=== PATIENT | female | born 1995 | race Caucasian/White ===

== ENCOUNTER 2017-07-18 19:47 | Emergency (ER) | payer MEDICAID, OTHER ==
[2017-07-18] MEDS ORDERED: NS 0.9% 1000 ML* 2,000 ML IV ONE (20:07)
[2017-07-18] MEDS ORDERED: Metoclopramide IV* 5 MG/ML 2 ML VIAL IV SLOW PU ONE ×2 (20:08→21:00)
[2017-07-18 20:48] LABS: ABS Basophils 0.1 10^3/ul (0-0.2); ABS Eosinophils 0.1 10^3/ul (0-0.6); ABS Lymphocytes 2.6 10^3/ul (1.0-4.8); ABS Monocytes 0.7 10^3/ul (0-0.8); ABS Nucleated RBC 0 10^3/ul; Eosinophil % 0.9 % (0-6); Hematocrit 40 % (35-47); Hemoglobin 13.4 g/dl (12.0-16.0); Lymphocyte % 20.8 % (25-47); Mean Corpuscular HGB Conc 34 g/dl (31-36); Mean Corpuscular Hemoglobin 30 pg (27-31); Mean Corpuscular Volume 88 fL (80-97); Mean Platelet Volume 8 um3 (7.4-10.4); Nucleated Red Blood Cells % 0; Platelet Count 293 10^3/ul (150-450); Red Cell Distribution Width 13 % (10.5-15); White Blood Count 12.6 10^3/ul (3.5-10.8)
--- NOTE | 2017-07-18 20:59 | RAD ---
INDICATION: Early with bleeding COMPARISON: None TECHNIQUE: Transabdominal scans were obtained for evaluation FINDINGS: There is a single intrauterine gestation variable presentation. The placenta is right lateral in location. There is cardiac activity of 158 beats for minute. There is documented movement. The neck fluid index appears normal. The cervix is closed measuring 4.1 cm. The estimated gestational age based on biparietal diameter, head circumference, abdominal circumference, and femur length corresponds to 14 weeks 4 days, 14 weeks 5 days, 13 weeks 5 days, and 13 weeks 5 days resulting a composite value of 14 weeks 0 days. This is a limited examination. A anatomic survey was not requested or performed. The anatomic survey can be performed at closer to 16-18 weeks as indicated. The right ovary measures 2.4 x 1.6 x 1.6 cm and contains a 1.6 cm cyst, likely corpus luteal cyst. Left ovary is not identified. IMPRESSION: INTRAUTERINE GESTATION AT 14 WEEKS 0 DAYS. NO SONOGRAPHIC ABNORMALITIES ARE DETECTED
--- NOTE | 2017-07-18 22:02 | ED ---
Ita Araujo Gabriel, scribed for Eric Calderon MD on 07/18/17 at 2008 . - HPI Summary HPI Summary: This patient is a 21 year old F BIBA to [facility] accompanied by her boyfriend with a chief complaint of hyperemesis since 07/11/17. Patient states she feels dehydrated and not getting adequate oral intake due to nausea. Patient denies diarrhea, fever, chills, vaginal bleeding, and vaginal discharge. She is currently 13 week and urinated last at 1800. . - History of Current Complaint Chief Complaint: EDOBProblems Stated Complaint: 13 WKS PREG/DEHYDRATED Time Seen by Provider: 07/18/17 20:03 Hx Obtained From: Patient Chief Complaint: Other: - vomiting Onset/Duration: Started Weeks Ago - 1, Still Present Timing: Constant Severity: Mild Current Severity: Mild Pain Intensity: 0 Associated Signs and Symptoms: Positive: Nausea, Vomiting - Allergies/Home Medications Allergies/Adverse Reactions: Allergies Allergy/AdvReac Type Severity Reaction Status Date / Time Hydrocodone Allergy Rash Verified 07/18/17 19:53 Morphine Allergy Rash Verified 07/18/17 19:53 Tramadol Allergy Rash Verified 07/18/17 19:53 PMH/Surg Hx/FS Hx/Imm Hx - Immunization History Immunizations Up to Date: Yes Infectious Disease History: No Infectious Disease History: Denies: Traveled Outside the [place] in Last 30 Days - Social History Alcohol Use: None Substance Use Type: Reports: None Smoking Status (MU): Never Smoked Tobacco Review of Systems Negative: Fever, Chills Positive: Vomiting, Nausea. Negative: Diarrhea Genitourinary: Negative - vaginal bleeding Negative: discharge All Other Systems Reviewed And Are Negative: Yes Physical Exam - Physical Exam Triage Information Reviewed: Yes Vital Signs Reviewed: Yes Appearance: Positive: Well-Appearing, No Pain Distress Skin: Positive: Warm, Skin Color Reflects Adequate Perfusion Head/Face: Positive: Normal Head/Face Inspection Neck: Positive: Nontender Respiratory/Lung Sounds: Positive: Clear to Auscultation, Breath Sounds Present Cardiovascular: Positive: RRR. Negative: Murmur Abdomen Description: Positive: Nontender Neurological: Positive: Sensory/Motor Intact, Alert, Oriented to Person Place, Time, CN Intact II-III Psychiatric: Positive: Normal AVPU Assessment: Alert - Jose Coma Scale Eye: 4 - Spontaneous Motor: 6 - Obeys Commands Verbal: 5 - Oriented Coma Scale Total: 15 Diagnostics - Vital Signs Vital Signs Temp Pulse Resp BP Pulse Ox 07/18/17 19:50 97.8 F 105 16 126/70 98 - Laboratory Lab Results: Lab Results 07/18/17 07/18/17 07/18/17 Range/Units 20:20 20:20 20:20 WBC 12.6 H (3.5-10.8) 10^3/ul RBC 4.50 (4.0-5.4) 10^6/ul Hgb 13.4 (12.0-16.0) g/dl Hct 40 (35-47) % MCV 88 (80-97) fL MCH 30 (27-31) pg MCHC 34 (31-36) g/dl RDW 13 (10.5-15) % Plt Count 293 (150-450) 10^3/ul MPV 8 (7.4-10.4) um3 Neut % (Auto) 71.6 (38-83) % Lymph % (Auto) 20.8 L (25-47) % [place] % (Auto) 5.9 (1-9) % Eos % (Auto) 0.9 (0-6) % Baso % (Auto) 0.8 (0-2) % Absolute Neuts (auto) 9.0 H (1.5-7.7) 10^3/ul Absolute Lymphs (auto) 2.6 (1.0-4.8) 10^3/ul Absolute Monos (auto) 0.7 (0-0.8) 10^3/ul Absolute Eos (auto) 0.1 (0-0.6) 10^3/ul Absolute Basos (auto) 0.1 (0-0.2) 10^3/ul Absolute Nucleated RBC 0 10^3/ul Nucleated RBC % 0 Sodium 135 (133-145) mmol/L Potassium 3.6 (3.5-5.0) mmol/L Chloride 103 (101-111) mmol/L Carbon Dioxide 24 (22-32) mmol/L Anion Gap 8 (2-11) mmol/L BUN 7 (6-24) mg/dL Creatinine 0.60 (0.51-0.95) mg/dL Est GFR ( Amer) 160.8 (>60) Est GFR (Non-Af Amer) 125.0 (>60) BUN/Creatinine Ratio 11.7 (8-20) Glucose 83 (70-100) mg/dL Calcium 9.2 (8.6-10.3) mg/dL Total Bilirubin 0.60 (0.2-1.0) mg/dL AST 14 (13-39) U/L ALT 10 (7-52) U/L Alkaline Phosphatase 60 (34-104) U/L Total Protein 6.5 (6.4-8.9) g/dL Albumin 3.9 (3.2-5.2) g/dL Globulin 2.6 (2-4) g/dL Albumin/Globulin Ratio 1.5 (1-3) Blood Type O Positive Result Diagrams: 07/18/17 20:20 07/18/17 20:20 Lab Statement: Any lab studies that have been ordered have been reviewed, and results considered in the medical decision making process. - Additional Comments Diagnostic Additional Comments: US reveals, per radiologist, INTRAUTERINE GESTATION AT 14 WEEKS 0 DAYS. NO SONOGRAPHIC ABNORMALITIES ARE DETECTED ED physician has reviewed this radiology report. Course/Dx - Course Course Of Treatment: 21 yr old with 14 week IUP, and labs good. Urine still pending. - Diagnoses Provider Diagnoses: Hyperemesis Discharge - Discharge Plan Condition: Good Disposition: OTHER Discharge Disposition Comment: await urine and final dispo sign out to Dr More [id number] Patient Education Materials: Hyperemesis Gravidarum (ED) Referrals: Kristopher Francisco DO [Primary Care Provider] - The documentation as recorded by the Ita gonzalez Gabriel accurately reflects the service I personally performed and the decisions made by , Eric Calderon MD.
[2017-07-18 22:30] LABS: Urine Appearance Cloudy; Urine Blood Negative (Negative); Urine Color Amber; Urine Ketones 2+ (Negative); Urine Protein 1+(30 mg/dL) (Negative); Urine Specific Gravity 1.023 (1.010-1.030); Urine Urobilinogen Positive (Negative)
[2017-07-18] MEDS ORDERED: Cephalexin CAP* 500 MG PO ONE (22:57)
[2017-07-19 02:09] VITALS: BP 126/71
== END 2017-07-19 01:21 | disposition home or self-care (01) ==
LOC: ED 19:47
DX: O21.0 Mild hyperemesis gravidarum (principal); Z3A.13 13 weeks gestation of pregnancy
CPT/HCPCS: 36415; 76815; 80053; 81003; 81015; 85025; 86900; 86901; 87086; 96374; 96375; 99282; A9270-GY; J2765

== ENCOUNTER 2018-01-08 04:16 | Inpatient (IN) | payer BC, OTHER ==
--- NOTE | 2018-01-08 04:40 | HP ---
General Information - General Information Maternal Age: 22 Grav: 2 Para: 1 SAB: 0 IEA: 0 Estimated Due Date: 01/20/18 Determined By: LMP Gestational Age in Weeks and Days: 27 Weeks and 2 Days Maternal Blood Type and Rh: O Positive - Results this Serology/RPR Result: Non-Reactive Rubella Result: Immune HBsAg Result: Negative HIV Result: Negative GBS Culture Result: Negative Past Medical History Delivery History: Hx Uncomplicated Vaginal Delivery Pertinent Past Medical History: See Records - hx childhood asthma, ASCUS Pap, +HPV Pertinent Past Surgical History: None Pertinent Family History: Non-Contributory - Antepartal Records Antepartal Records: Reviewed, Uncomplicated Review of Systems Constitutional: Uncomfortable CV Complaint: No Respiratory: Shortness of Breath: No Gastrointestinal: No Nausea/Vomiting, Normal Bowel Movement Genitourinary: Leaking Fluid, No Dysuria, No Bleeding Musculoskeletal: Contractions Neurological: No Headache, No Visual Changes Movement: Normal Exam Allergies/Adverse Reactions: Allergies MS Hydrocodone [Hydrocodone] Allergy (Verified 10/23/17 05:18) Rash MS Morphine [Morphine] Allergy (Verified 10/23/17 05:18) Rash MS Tramadol [Tramadol] Allergy (Verified 10/23/17 05:18) Rash T-98.9, P-92, R-20, BP- 138/71, O2-100% - Measurements Height: 5 ft Weight: 75.296 kg Body Mass Index (BMI): 32.4 Pre- Weight: 74.843 kg - Exam Abdomen: No Upper Quadrant Pain Breast: Breast Exam Deferred CVA: No CVA Tenderness Extremities: No Edema Heart: Normal Rhythm/Heart Sounds HEENT: No Significant Findings Lungs: Clear Bilaterally Rectal: Rectal Exam Deferred Reflexes: DTR 2+ Thyroid: No Thyromegaly - Abdominal Exam Abdomen Exam: Non-Tender, Fundal Height Consistent with Dates - Ultrasound/Biophysical Profile Ultrasound Status: Not Done Targeted Exam Findings See L&D Outpatient Visit Provider Note for Findings: N/A Estimated Weight: 6.5# Cervical Exam: 6cm Effacement: 100% Station: 0 Presenting Part: Vertex Membrane Status: SROM Amniotic Fluid Evaluation: Gross Rupture Bleeding/Discharge: None EFM Findings - External Monitor Findings Baseline Heart Rate: 145 External Monitor Findings: No Pattern of Variable or Late Decelerations, Variability Moderate, Baseline Stable, Accelerations Absent Contractions: Regular, Strong, 45-90 Seconds - 3-4 Assessment/Plan - Reason for Visit Reason for Visit: Active labor - Plan Plan: Active Labor - Date/Time of Admission Date of Admission: 01/08/18 Time of Admission: 04:30
[2018-01-08 04:52] LABS: ABS Basophils 0.1 10^3/ul (0-0.2); ABS Eosinophils 0.3 10^3/ul (0-0.6); ABS Lymphocytes 2.7 10^3/ul (1.0-4.8); ABS Monocytes 1.3 10^3/ul (0-0.8); ABS Neutrophils 13.5 10^3/ul (1.5-7.7); ABS Nucleated RBC 0 10^3/ul; Eosinophil % 1.4 % (0-6); Hematocrit 42 % (35-47); Hemoglobin 14.2 g/dl (12.0-16.0); Lymphocyte % 15.2 % (25-47); Mean Corpuscular HGB Conc 34 g/dl (31-36); Mean Corpuscular Hemoglobin 30 pg (27-31); Mean Corpuscular Volume 89 fL (80-97); Mean Platelet Volume 7.9 um3 (7.4-10.4); Nucleated Red Blood Cells % 0.1; Platelet Count 345 10^3/ul (150-450); Red Blood Count 4.68 10^6/ul (4.00-5.40); Red Cell Distribution Width 14 % (10.5-15)
[2018-01-08] MEDS ORDERED: OBEPIDURAL* 250 ML EPIDURAL ONE (04:54)
[2018-01-08] MEDS ORDERED: Hetastarch 6% in NS* 200 ML IV PRN (05:48)
[2018-01-08] MEDS ORDERED: Famotidine TAB* 20 MG PO PRN (05:48)
[2018-01-08] MEDS ORDERED: Sodium Citrate/Citric Acid* 15 ML UDC PO PRN (05:48)
[2018-01-08] MEDS ORDERED: Phenylephrine IV* 40 MCG/ML 10 ML SYRINGE IV PUSH PRN ×2 (05:48)
[2018-01-08] MEDS ORDERED: OBEPIDURAL* 250 ML EPIDURAL SCH (06:00)
[2018-01-08] MEDS ORDERED: Oxytocin in LR* 20 UNITS/1,000 ML BAG IVPB ONE (06:32)
[2018-01-08] MEDS ORDERED: Witch Hazel PAD* JAR TOPICAL PRN (06:55)
[2018-01-08] MEDS ORDERED: Dibucaine 1% 28.35 GM TUBE PR PRN (06:55)
[2018-01-08] MEDS ORDERED: Glycerin ADULT SUPP PR PRN (06:55)
--- NOTE | 2018-01-08 07:23 | PROCNOTE ---
[facility] OB: Delivery Note - Delivery A Date of : 01/08/18 Time of : 06:27 [place] Sex: Male Weight at : 2.75 kg Score 1 Minute: 9 Score 5 Minutes: 9 Gestational Age in Weeks and Days at Delivery: 38 Weeks and 2 Days Delivery Method: Spontaneous Vaginal Labor: Spontaneous Amniotic Fluid: Clear Estimated Blood Loss: 200 Anesthesia/Analgesia: CEI for Labor Delivered By: [facility] Level of Nursery: Regular/Bedside - Perineum Perineal Injury: None/Intact Perineal Repair: None - Events Delivery Events of Note: Pitocin Only After Delivery Delivery Events of Note Comment: trailing membranes - Additional Delivery Notes Additional Delivery Notes: Pt admitted in active labor at 38 2/7 weeks gestation, with SROM of clear fluids at home. Epidural requested and placed by Dr. Matos with good relief. Pt progressed to full dilation and began to push. Pt pushed with good effort, delivering a viable male after 6 minutes of pushing, over an intact perineum. Infant placed on mother's chest, and cord clamped after pulsation ceased, cut by baby's father. Pitocin in LR began infusing after of baby. Placenta delivered spontaneously with trailing membranes, intact. Mother and resting, , in stable condition.
[2018-01-08] MEDS: Docusate CAP* 100 MG PO SCH ×3 (09:00→19:32)
[2018-01-08] MEDS: Ibuprofen TAB* 600 MG PO PRN ×2 (10:12→16:03)
[2018-01-08] MEDS: Acetaminophen TAB* 325 MG PO PRN ×2 (13:34→21:22)
[2018-01-09 04:19] VITALS: BP 100/33
[2018-01-09 07:02] LABS: ABS Basophils 0.1 10^3/ul (0-0.2); ABS Eosinophils 0.3 10^3/ul (0-0.6); ABS Lymphocytes 3.9 10^3/ul (1.0-4.8); ABS Neutrophils 9.9 10^3/ul (1.5-7.7); ABS Nucleated RBC 0 10^3/ul; Eosinophil % 1.7 % (0-6); Hematocrit 38 % (35-47); Hemoglobin 13.2 g/dl (12.0-16.0); Lymphocyte % 25.9 % (25-47); Mean Corpuscular HGB Conc 35 g/dl (31-36); Mean Corpuscular Hemoglobin 31 pg (27-31); Mean Corpuscular Volume 90 fL (80-97); Mean Platelet Volume 7.9 um3 (7.4-10.4); Nucleated Red Blood Cells % 0.1; Platelet Count 292 10^3/ul (150-450); Red Blood Count 4.25 10^6/ul (4.00-5.40); Red Cell Distribution Width 14 % (10.5-15); White Blood Count 15.2 10^3/ul (3.5-10.8)
[2018-01-09] MEDS: Ibuprofen TAB* 600 MG PO PRN (07:22)
[2018-01-09] MEDS: Acetaminophen TAB* 325 MG PO PRN (07:23)
[2018-01-09] MEDS ORDERED: Ferrous Gluconate TAB* 324 MG TAB PO SCH (09:00)
[2018-01-09] MEDS: Docusate CAP* 100 MG PO SCH (09:44)
== END 2018-01-09 13:30 | disposition home or self-care (01) | DRG 775 ==
LOC: MCHOBOUT 04:16 → MCHOB 04:33
PROVIDERS: ADMIT Midwife; ATTEND Midwife
PROC: 4A1HXCZ Monitoring of Products of Conception, Cardiac Rate, External Approach (ICD-10-PCS; principal; 2018-01-08)
PROC: 10E0XZZ Delivery of Products of Conception, External Approach (ICD-10-PCS; 2018-01-08)
PROC: 00HU33Z Insertion of Infusion Device into Spinal Canal, Percutaneous Approach (ICD-10-PCS; 2018-01-08)
DX: O76 Abnormality in fetal heart rate and rhythm complicating labor and delivery (principal); Z37.0 Single live birth; Z88.5 Allergy status to narcotic agent
CPT/HCPCS: 36415; 85025; 86850; 86900; 86901; A9270-GY

== ENCOUNTER 2019-04-28 08:12 | Emergency (ER) | payer OTHER ==
[2019-04-28 08:23] VITALS: BP 110/69
--- NOTE | 2019-04-28 08:47 | UC ---
Throat Pain/Nasal Zain HPI - HPI Summary HPI Summary: Patient is a 23-year-old female who presents to the urgent care with chief complaint of having sore throat for the last couple days. She reports that about a week ago one of the children was diagnosed with strep throat. She reports no fevers, no chills and she has a dry cough. She also has nasal congestion and runny nose. Denies any body aches or joint pain. Her last menstrual cycle was 2 weeks ago. - History of Current Complaint Chief Complaint: UCGeneralIllness Stated Complaint: THROAT COMPLAINT Time Seen by Provider: 04/28/19 08:25 Hx Obtained From: Patient Hx Last Menstrual Period: end march Onset/Duration: Gradual Onset Severity: Mild Pain Intensity: 4 - Allergies/Home Medications Allergies/Adverse Reactions: Allergies Allergy/AdvReac Type Severity Reaction Status Date / Time hydromorphone Allergy Rash Verified 04/28/19 08:23 morphine Allergy Rash Verified 04/28/19 08:23 tramadol Allergy Rash Verified 04/28/19 08:23 Home Medications: Home Medications Etonogestrel [Nexplanon] 68 mg IMPLANT 04/28/19 [History] PMH/Surg Hx/FS Hx/Imm Hx Previously Healthy: Yes - Surgical History Surgical History: None - Family History Known Family History: Positive: Non-Contributory - Social History Alcohol Use: None Substance Use Type: None Smoking Status (MU): Never Smoked Tobacco Have You Smoked in the Last Year: No - Immunization History Most Recent Influenza Vaccination: fall Most Recent Pneumonia Vaccination: never Review of Systems All Other Systems Reviewed And Are Negative: Yes Constitutional: Positive: Negative Skin: Positive: Negative Eyes: Positive: Negative ENT: Positive: Sore Throat Respiratory: Positive: Negative Cardiovascular: Positive: Negative Gastrointestinal: Positive: Negative Genitourinary: Positive: Negative Motor: Positive: Negative Neurovascular: Positive: Negative Musculoskeletal: Positive: Negative Neurological: Positive: Negative Psychological: Positive: Negative Is Patient Immunocompromised?: No Physical Exam - Summary Physical Exam Summary: Vital signs: Reviewed Gen.: Patient is a well developed and nourished female- in no acute distress. Patient is sitting comfortably on the stretcher. Head: Normacephalic and atraumatic Eyes: PERRLA, EOMI x2. Ears: Right ear canal and TM WNL Left ear canal and TM WNL Nose Nose with dry mucosa and clear discharge. No sinus tenderness and mouth: No pharyngeal erythema . Neck: Supple, No-bilateral submandibular and anterior cervical lymphadenopathy. No JVD Lungs: CTA B/L CVS: S1 & S2 present. No murmurs appreciated. ABDOMEN: Soft NT w/ positive BS. EXT: FROM x 4 NEURO: A+O X 3. Triage Information Reviewed: Yes Appearance: Well-Appearing Vital Signs: Initial Vital Signs Temp 98.4 F 04/28/19 08:20 Pulse 83 04/28/19 08:20 Resp 16 04/28/19 08:20 BP 110/69 04/28/19 08:20 Pulse Ox 99 04/28/19 08:20 Vital Signs Reviewed: Yes Throat Pain/Nasal Course/Dx - Course Course Of Treatment: Rapid strep is negative. Therefore, I think that the patient's symptoms are secondary to viral infection. She was recommended to take ibuprofen or Tylenol for the pain. Follow-up with primary care physician in the next 2 days. - Differential Dx/Diagnosis Provider Diagnosis: Pharyngitis Discharge ED - Sign-Out/Discharge Documenting (check all that apply): Patient Departure All imaging exams completed and their final reports reviewed: No Studies - Discharge Plan Condition: Stable Disposition: HOME Patient Education Materials: Pharyngitis (ED) Forms: *Work Release Referrals: Kristopher Francisco DO [Primary Care Provider] - Additional Instructions: Takes ibuprofen or Tylenol for the pain. Increase her water intake. Follow-up with primary care physician next 2 days. He symptoms worsen he should return to the urgent care or go to the emergency department. - Billing Disposition and Condition Condition: STABLE Disposition: Home
== END 2019-04-28 08:55 | disposition home or self-care (01) ==
LOC: UCEAST 08:12
DX: J02.9 Acute pharyngitis, unspecified (principal); Z88.5 Allergy status to narcotic agent
CPT/HCPCS: 87651; 99211; G0463

== ENCOUNTER 2019-06-18 13:15 | Emergency (ER) | payer OTHER ==
--- NOTE | 2019-06-18 14:39 | UC ---
Throat Pain/Nasal Zain HPI - HPI Summary HPI Summary: 23 yo female presents with flu-like symptoms. She tells me that over the past 5 days she has had sinus pain/pressure/congestion, fatigue, body aches, and a dry cough. She has been taking ibuprofen and mucinex OTC with mild relief. 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 Has felt feverish, but has not had a temperature. Denies SOB, rash, abdominal pain, n/v - History of Current Complaint Stated Complaint: SINUS ISSUE HEADACHE COUGH FEVER Time Seen by Provider: 06/18/19 14:39 Hx Obtained From: Patient Hx Last Menstrual Period: end march Onset/Duration: Gradual Onset Severity: Mild Pain Intensity: 3 Pain Scale Used: 0-10 Numeric - Allergies/Home Medications Allergies/Adverse Reactions: Allergies Allergy/AdvReac Type Severity Reaction Status Date / Time hydromorphone Allergy Rash Verified 06/18/19 14:40 morphine Allergy Rash Verified 06/18/19 14:40 tramadol Allergy Rash Verified 06/18/19 14:40 PMH/Surg Hx/FS Hx/Imm Hx - Additional Past Medical History Additional PMH: None - Surgical History Surgical History: None - Family History Known Family History: Positive: Non-Contributory - Social History Occupation: Employed Full-time Lives: With Family Alcohol Use: None Substance Use Type: None Smoking Status (MU): Never Smoked Tobacco Have You Smoked in the Last Year: No - Immunization History Most Recent Influenza Vaccination: fall Most Recent Pneumonia Vaccination: never Review of Systems All Other Systems Reviewed And Are Negative: No Constitutional: Positive: Fatigue, Other - Body aches Skin: Positive: Negative Eyes: Positive: Negative ENT: Positive: Sinus Congestion Respiratory: Positive: Cough Cardiovascular: Positive: Negative Gastrointestinal: Positive: Negative Neurological: Positive: Negative Psychological: Positive: Negative Physical Exam - Summary Physical Exam Summary: GENERAL: NAD. WDWN. No pain distress. SKIN: No rashes, sores, lesions, or open wounds. HEENT: Head: AT/NC Eyes: EOM intact. Conjunctiva clear without inflammation or discharge. Ears: Hearing grossly normal. TMs intact, no bulging, erythema, or edema. Nose: Nasal mucosa pink and moist. NTTP maxillary and frontal sinus. Throat: Posterior oropharynx without exudates, erythema, or tonsillar enlargement. Uvula midline. NECK: Supple. Nontender. No lymphadenopathy. CHEST: CTAB. No accessory muscle use. Breathing comfortably and in no distress. CV: RRR. Pulses intact. Cap refill <2seconds NEURO: Alert. PSYCH: Age appropriate behavior. Triage Information Reviewed: Yes Vital Signs: Vital Signs: Temp Pulse Resp BP Pulse Ox 99.3 F 62 16 139/82 98 06/18/19 14:41 06/18/19 14:41 06/18/19 14:41 06/18/19 14:41 06/18/19 14:41 Laboratory Tests 06/18/19 15:09 Influenza A (Rapid) Negative Influenza B (Rapid) Negative Vital Signs Reviewed: Yes Throat Pain/Nasal Course/Dx - Course Course Of Treatment: POC flu negative. 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, she prefers to be on anbx at this time - Differential Dx/Diagnosis Provider Diagnosis: Sinusitis Discharge ED - Sign-Out/Discharge Documenting (check all that apply): Patient Departure All imaging exams completed and their final reports reviewed: No Studies - Discharge Plan Condition: Stable Disposition: HOME Prescriptions: Amoxicillin PO (*) [Amoxicillin 875 MG (*)] 875 mg PO BID #14 tab Patient Education Materials: Sinusitis (ED) Forms: *Work Release Referrals: Kristopher Francisco DO [Primary Care Provider] - Additional Instructions: If you develop a fever, shortness of breath, chest pain, new or worsening symptoms - please call your PCP or go to the ED immediately. - Billing Disposition and Condition Condition: STABLE Disposition: Home
[2019-06-18 14:48] VITALS: BP 139/82
[2019-06-18 15:20] LABS: Influenza A Molecular NEGATIVE (Negative); Influenza B Molecular NEGATIVE (Negative)
== END 2019-06-18 15:30 | disposition home or self-care (01) ==
LOC: UCEAST 13:15
DX: J32.9 Chronic sinusitis, unspecified (principal); R53.83 Other fatigue; R52 Pain, unspecified; R05 Cough; Z88.5 Allergy status to narcotic agent
CPT/HCPCS: 99212; G0463

== ENCOUNTER 2022-05-26 16:40 | Inpatient (IN) ==
[2022-05-26] MEDS ORDERED: Penicillin G Potassium IV 5,000,000 UNITS in NS 0.9% 100 ml BAG 100 ML IVPB ONE (17:13)
[2022-05-26] MEDS ORDERED: Buffered Lidocaine 1% SYRIN 1 ml INTRADERM ONE ×2 (17:13→19:22)
[2022-05-26 17:34] LABS: Urine Appearance Cloudy; Urine Bilirubin Negative (Negative); Urine Blood Negative (Negative); Urine Color Straw; Urine Glucose Negative (Negative); Urine Ketones Negative (Negative); Urine Nitrite Negative (Negative); Urine Protein Negative (Negative); Urine Specific Gravity 1.006 (1.002-1.030); Urine Urobilinogen Negative (Negative)
[2022-05-26 17:37] LABS: Urine Bacteria 1+ (Absent); Urine Red Blood Cell 1+(3-5/hpf) (Absent); Urine Squamous Epithelial Cell Present (Absent); Urine White Blood Cell 1+(6-10/hpf) (Absent); Urine Yeast Present (Absent)
[2022-05-26] MEDS: Betamethasone 6 mg/ml 5 ml VIAL IM SCH (17:38)
[2022-05-26 17:46] LABS: ABS Basophils 0.1 10^3/ul (0-0.2); ABS Eosinophils 0.2 10^3/ul (0-0.6); ABS Lymphocytes 2.1 10^3/ul (1.0-4.8); ABS Monocytes 0.8 10^3/ul (0-0.8); ABS Neutrophils 11.1 10^3/ul (1.5-7.7); Eosinophil % 1.7 %; Hematocrit 40 % (35-47); Hemoglobin 13.5 g/dL (12.0-16.0); Lymphocyte % 14.4 %; Mean Corpuscular HGB Conc 34 g/dL (31-36); Mean Corpuscular Hemoglobin 30 pg (27-31); Mean Corpuscular Volume 90 fL (80-97); Mean Platelet Volume 7.7 fL (7.4-10.4); Platelet Count 271 10^3/uL (150-450); Red Blood Count 4.45 10^6 /uL (3.70-4.87); Red Cell Distribution Width 14 % (10-15); White Blood Count 14.3 10^3/uL (3.5-10.8)
[2022-05-26] MEDS: Calcium Carb (TUMS) 500 mg CHEW TAB PO PRN (17:46)
[2022-05-26] MEDS ORDERED: Lactated Ringers 1000 ml BAG 1,000 ML IV SCH ×3 (18:00→20:00)
[2022-05-26 18:23] LABS: Albumin 3.4 g/dL (3.2-5.2); Albumin/Globulin Ratio 1.3 (1-3); Calcium 8.8 mg/dL (8.6-10.3); Globulin 2.6 g/dL (2-4); Potassium 3.8 mmol/L (3.5-5.0); Total Bilirubin 0.4 mg/dL (0.2-1.0); Uric Acid 3.5 mg/dL (2.3-6.6); eGFR CKD-EPI 131.1 (>60)
[2022-05-26] MEDS: Lactated Ringers 1000 ml BAG 1,000 ML IV SCH (19:17)
[2022-05-26] MEDS ORDERED: Lactated Ringers 1000 ml BAG 1,000 ML IV ONE (19:22)
[2022-05-26] MEDS ORDERED: Promethazine INJ(RESTRICTED) 25 MG/ML 1 ml VIAL IV PRN (19:22)
[2022-05-26] MEDS ORDERED: Nalbuphine 10 MG/ML 1 ML VIAL IV PRN (19:22)
[2022-05-26 21:30] LABS: Urine Benzodiazepine Screen None Detected (None Detect); Urine Cannabinoids Screen None Detected (None Detect); Urine Opiates Screen None Detected (None Detect)
[2022-05-26] MEDS: Penicillin G Potassium IV 3,000,000 UNITS in NS 0.9% 100 ml BAG 100 ML IVPB SCH (22:19)
[2022-05-27] MEDS: Penicillin G Potassium IV 3,000,000 UNITS in NS 0.9% 100 ml BAG 100 ML IVPB SCH ×4 (02:05→14:18)
[2022-05-27] MEDS: Lactated Ringers 1000 ml BAG 1,000 ML IV SCH ×2 (02:07→06:48)
[2022-05-27] MEDS: Betamethasone 6 mg/ml 5 ml VIAL IM SCH (16:57)
[2022-05-27] MEDS: Calcium Carb (TUMS) 500 mg CHEW TAB PO PRN (16:59)
[2022-05-29 13:36] LABS: Trichomonas vag NAA Female Negative (Negative)
[2022-05-29 13:56] LABS: Chlamydia trachomatis NAA Negative (Negative); Neisseria gonorrhoeae (GC) NAA Negative (Negative)
== END 2022-05-27 17:10 | disposition home or self-care (01) | DRG 563 ==
LOC: MCHOBOUT 16:40 → MCHOB 20:04
PROVIDERS: ADMIT Obstetrics & Gynecology; ATTEND Obstetrics & Gynecology

== ENCOUNTER 2022-07-05 11:44 | Inpatient (IN) ==
[2022-07-05] MEDS ORDERED: Lactated Ringers 1000 ml BAG 1,000 ML IV ONE ×2 (12:13→17:32)
[2022-07-05] MEDS ORDERED: Oxytocin in LR 20,000 MILLI.UNIT/1,000 ML BAG IV SCH ×2 (12:45→19:15)
[2022-07-05] MEDS ORDERED: Lactated Ringers 1000 ml BAG 1,000 ML IV SCH ×4 (13:00→20:00)
[2022-07-05 13:11] LABS: Urine Appearance Cloudy; Urine Bilirubin Negative (Negative); Urine Blood Negative (Negative); Urine Color Yellow; Urine Glucose 1+(50 mg/dL) (Negative); Urine Ketones Negative (Negative); Urine Nitrite Negative (Negative); Urine Protein Negative (Negative); Urine Specific Gravity 1.012 (1.002-1.030); Urine Urobilinogen Negative (Negative)
[2022-07-05 13:13] LABS: Urine Bacteria Absent (Absent); Urine Red Blood Cell 1+(3-5/hpf) (Absent); Urine Squamous Epithelial Cell Present (Absent); Urine White Blood Cell 3+(>20/hpf) (Absent)
[2022-07-05 13:25] LABS: Urine Benzodiazepine Screen None Detected (None Detect); Urine Cannabinoids Screen None Detected (None Detect); Urine Opiates Screen None Detected (None Detect)
[2022-07-05 13:37] LABS: ABS Basophils 0.1 10^3/ul (0-0.2); ABS Eosinophils 0.1 10^3/ul (0-0.6); ABS Lymphocytes 2.3 10^3/ul (1.0-4.8); ABS Neutrophils 9.8 10^3/ul (1.5-7.7); Hematocrit 39 % (35-47); Hemoglobin 13.4 g/dL (12.0-16.0); Lymphocyte % 17.3 %; Mean Corpuscular HGB Conc 34 g/dL (31-36); Mean Corpuscular Hemoglobin 30 pg (27-31); Mean Corpuscular Volume 87 fL (80-97); Mean Platelet Volume 8.1 fL (7.4-10.4); Platelet Count 296 10^3/uL (150-450); Red Cell Distribution Width 14 % (10-15); White Blood Count 13.3 10^3/uL (3.5-10.8)
[2022-07-05] MEDS ORDERED: OBEPIDURAL (200 ML) 200 ML EPIDURAL ONE (16:53)
[2022-07-05] MEDS ORDERED: EPINEPHrine SULFITE FREE 1 MG/ML ONE (16:54)
[2022-07-05] MEDS ORDERED: Lidocaine 1% MPF 2 ML VIAL ONE (16:54)
[2022-07-05] MEDS ORDERED: Lidocaine 1% VIAL 10 MG/ML VIAL 30 ML ONE (16:56)
[2022-07-05] MEDS ORDERED: Lactated Ringers 1000 ml BAG 500 ML IV PRN (17:32)
[2022-07-05] MEDS ORDERED: Phenylephrine 40 mcg/mL 10mL (400mcg) SYRINGE IV PUSH PRN ×2 (17:32)
[2022-07-05] MEDS ORDERED: Sodium Citrate/Citric Acid LIQ 15 ML UDC PO PRN (17:32)
[2022-07-05] MEDS ORDERED: OBEPIDURAL (200 ML) 200 ML EPIDURAL SCH (18:00)
[2022-07-05] MEDS ORDERED: Dibucaine 1% OINT 28.35 GM TUBE PR PRN (19:14)
[2022-07-05] MEDS ORDERED: Witch Hazel PAD JAR TOPICAL PRN (19:14)
[2022-07-06 08:55] LABS: ABS Basophils 0.1 10^3/ul (0-0.2); ABS Eosinophils 0.1 10^3/ul (0-0.6); ABS Lymphocytes 2.5 10^3/ul (1.0-4.8); Eosinophil % 0.8 %; Hematocrit 40 % (35-47); Hemoglobin 13.1 g/dL (12.0-16.0); Lymphocyte % 17.2 %; Mean Corpuscular HGB Conc 33 g/dL (31-36); Mean Corpuscular Hemoglobin 29 pg (27-31); Mean Corpuscular Volume 90 fL (80-97); Mean Platelet Volume 8.3 fL (7.4-10.4); Platelet Count 285 10^3/uL (150-450); Red Blood Count 4.45 10^6 /uL (3.70-4.87); Red Cell Distribution Width 14 % (10-15); White Blood Count 14.8 10^3/uL (3.5-10.8)
[2022-07-06 12:21] LABS: Chlamydia trachomatis NAA Negative (Negative); Neisseria gonorrhoeae (GC) NAA Negative (Negative)
[2022-07-06 16:17] VITALS: BP 114/49
== END 2022-07-06 20:05 | disposition home or self-care (01) | DRG 560 ==
LOC: MCHOBOUT 11:44 → MCHOB 12:11
PROVIDERS: ADMIT Midwife; ATTEND Midwife